=== PATIENT | female | born 1980 | race Caucasian/White ===

== ENCOUNTER 2018-02-23 23:31 | Emergency (ER) | payer BC, MEDICARE ==
[~2018-02-23] VITALS: Ht 167.6 cm; Wt 145.4 kg
[2018-02-24] MEDS ORDERED: ONDANSETRON HCL 4 MG/2 ML VIAL IVP ONE (00:45)
[2018-02-24] MEDS ORDERED: SODIUM CHLORIDE 0.9% 1,000 ML IV ONE (00:45)
[2018-02-24] MEDS ORDERED: PB/HYOSCY/ATR/SCOP/LIDO/MAALOX 55 ML BOTTLE PO ONE (00:45)
[2018-02-24 02:52] VITALS: BP 133/76
== END 2018-02-24 03:08 | disposition home or self-care (01) ==
LOC: EMS 23:33
DX: R10.11 Right upper quadrant pain (principal); R11.0 Nausea; Z90.89 Acquired absence of other organs; Z91.040 Latex allergy status
CPT/HCPCS: 76705; 81025; 96374; 99284; J2405; J7030